=== PATIENT | male | born 1985 | race Caucasian/White ===

== ENCOUNTER 2017-01-28 03:12 | Emergency (ER) | payer MEDICAID ==
[~2017-01-28] VITALS: Ht 183.5 cm; Wt 77.1 kg
[2017-01-28] MEDS ORDERED: KLONOPIN0.5 MG ORAL (03:28)
[2017-01-28] MEDS ORDERED: CELEXA20 MG ORAL ×2 (03:28→05:40)
[2017-01-28] MEDS ORDERED: GABAPENTIN100 MG ORAL (03:29)
[2017-01-28 03:32] VITALS: BP 118/88
[2017-01-28] MEDS ORDERED: PERMETHRIN60 GM TOPIC (05:40)
[2017-01-28 05:46] VITALS: BP 1/1
--- NOTE | 2017-01-28 23:29 | Emergency Room Report ---
History of Present Illness General Chief Complaint: General Complaint Source: Patient Present Illness HPI 31YOM [employer] with rash for "many months to whole body." States sleeping on friend's couch, just moved to [place] from [place]. Associated with itch. No fever/ chills, blistering. Also requesting refill of Celexa and Klonopin for known depression/anxiety. Again endorsing recent move here. Doesnt have psychiatrist. Denies SI, HI, AVH. Patient History Past Medical History: psych hx Past Surgical History: none Pertinent Family History: none Social History: Denies: alcohol use, drug use, smoking Immunizations: UTD Reviewed Nursing Documentation: PMH: Agreed, PSxH: Agreed Nursing Documentation-PMH Past Medical History: No History, Except For History Of Psychiatric Problem: Yes - anxiety, PTSD Review of Systems All Other Systems: negative except mentioned in HPI Physical Exam Vital Signs Date Time Temp Pulse Resp B/P Pulse Ox O2 Delivery O2 Flow Rate FiO2 01/28/17 03:24 97.9 88 20 110/84 100 Room Air Sp02 EP Interpretation: reviewed, normal General Appearance: normal inspection, well appearing, no apparent distress, alert, GCS 15, non-toxic Head: normocephalic, atraumatic Eyes: bilateral eye EOMI, bilateral eye PERRL ENT: normal ENT inspection, hearing grossly normal, normal voice Neck: normal inspection, full range of motion, supple, no bony tend Respiratory: normal inspection, lungs clear, normal breath sounds, no respiratory distress, no retraction, no wheezing Cardiovascular #1: regular rate, rhythm, no edema Gastrointestinal: normal inspection, normal bowel sounds, non tender, soft, no guarding, no hernia Genitourinary: no CVA tenderness Musculoskeletal: normal inspection, back normal, normal range of motion, Mani' s Sign negative Neurologic: normal inspection, alert, oriented x3, responsive, drum maker III-XII nml as tested, motor strength/tone normal, speech normal Psychiatric: normal inspection, judgement/insight normal, mood/affect normal Skin: other - Multiple areas of excoriations to bilateral upper/lower extremities, torso/back/abdomen with isolated single scabs, papules. No blisters or vesicles. Also in webbing of hands. Medical Decision Making Diagnostic Impression: Primary Impression: Scabies Additional Impression: Medication refill ER Course Rash for 4 months - VSS. Afebrile. - No fever, blisters, vesicles - ?scabies - Rx Permethrin Med refill - Refilled Celexa - Advised patient Im not comfortable refilling Klonopin - Given [facility] referral info - No SI, HI, AVH. - Does not need urgent psych eval Last Vital Signs Date Time Temp Pulse Resp B/P Pulse Ox O2 Delivery O2 Flow Rate FiO2 01/28/17 05:46 07/2101/28/17 03:32 97.9 74 20 100 Room Air Status: improved Disposition: HOME, SELF-CARE Condition: Improved Scripts Citalopram Hydrobromide* (CELEXA*) 20 Mg Tablet 20 MG ORAL DAILY for 30 Days, #30 TAB Prov: ETHAN GONZALEZ M.D. 01/28/17 Permethrin* (ELIMITE*) 60 Gm Cream..g. 1 APPLIC TOPIC ONCE, #60 GM 0 Refills Apply cream from head to toe; leave on for 8-14 hours before washing off with water; may reapply in 1 week if live mites appear. Prov: ETHAN GONZALEZ M.D. 01/28/17 Referrals: NOT CHOSEN [facility]/,REFERRING (PCP) Patient Instructions: Contact Precautions, [id number] ETHAN GONZALEZ M.D. Jan 28, 2017 23:29
== END 2017-01-28 05:45 | disposition home or self-care (01) ==
LOC: EMR 03:43
DX: Z76.0 Encounter for issue of repeat prescription (principal); B86 Scabies; F32.9 Major depressive disorder, single episode, unspecified; F41.9 Anxiety disorder, unspecified
CPT/HCPCS: 99284

== ENCOUNTER 2017-02-01 00:52 | Emergency (ER) | payer MEDICAID ==
[~2017-02-01] VITALS: Ht 182.9 cm; Wt 77.1 kg
[2017-02-01] VITALS (12 sets, daily range): BP systolic 104–125; BP diastolic 62–87
[~2017-02-01 00:52] MED LIST: ATENOLOL25 MG ORAL; CATAPRES0.2 MG ORAL; CELEXA20 MG ORAL; GABAPENTIN100 MG ORAL; KLONOPIN0.5 MG ORAL; PERMETHRIN60 GM TOPIC; TEGRETOL200 MG PO
[2017-02-01] MEDS ORDERED: Tetanus/Diptheria/Pertussis Vaccine 0.5ml Syr IM ONE (01:00)
[2017-02-01] MEDS ORDERED: LORazepam 1mg tab ORAL ONE (01:00)
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
[2017-02-01] MEDS ORDERED: IBUPROFEN600 MG ORAL (06:44)
[2017-02-01] MEDS ORDERED: PERMETHRIN60 GM TOPIC (06:44)
[2017-02-01 07:37] LABS: BASOPHILS % (AUTO) 1.8 % (0.0-2.0); EOSINOPHILS % (AUTO) 1.9 % (0.0-3.0); LYMPHOCYTES % (AUTO) 40.8 % (20.0-45.0); MEAN CORPUSCULAR HEMOGLOBIN 33.4 PG (27.0-31.0); MEAN CORPUSCULAR HGB CONC 34.1 G/DL (32.0-36.0); MEAN CORPUSCULAR VOLUME 98 FL (80-99); MEAN PLATELET VOLUME 5.9 FL (6.5-10.1); MONOCYTES % (AUTO) 8.4 % (1.0-10.0); NEUTROPHILS % (AUTO) 47.2 % (45.0-75.0); PLATELET COUNT 268 K/UL (150-450); RED BLOOD COUNT 4.08 M/UL (4.70-6.10); RED CELL DISTRIBUTION WIDTH 10.8 % (11.6-14.8); WHITE BLOOD COUNT 8.2 K/UL (4.8-10.8)
[2017-02-01 08:20] LABS: ACETAMINOPHEN < 10 ug/mL (10-30); ALANINE AMINOTRANSFERASE 31 U/L (3-41); ALBUMIN/GLOBULIN RATIO 1.2 (1.0-2.7); ALCOHOL < 10 mg/dL; ANION GAP 10 (5-15); ASPARTATE AMINO TRANSFERASE 37 U/L (5-40); CALCIUM 9.1 mg/dL (8.6-10.2); CARBON DIOXIDE 29 mEQ/L (20-30); CHLORIDE 100 mEQ/L (98-107); GLOMERULAR FILTRATION RATE > 60 mL/min (>60); HEMOLYSIS 20; POTASSIUM 4.4 mEQ/L (3.4-4.9); SODIUM 139 mEQ/L (135-145); TOTAL PROTEIN 6.5 g/dL (6.6-8.7)
--- NOTE | 2017-02-01 10:58 | Diagnostic Imaging Report ---
Indication: Left hand trauma/pain Technique: XRAY HAND 2V LEFT Comparison: None Findings: Examination is limited by suboptimal positioning and only 2 orthogonal planes. There is no gross acute fracture or dislocation. There is old fracture deformity of the fifth metacarpal. Corticated ossicle versus old nonunited fracture of the ulnar styloid is seen. Soft tissue swelling is seen. Impression: Limited examination without gross acute fracture or dislocation. Soft tissue swelling. Repeat examination recommended as indicated. Chronic findings as above.
--- NOTE | 2017-02-03 08:39 | Diagnostic Imaging Report ---
Indication: Right hand pain Technique: XRAY HAND 2V RIGHT Comparison: None Findings: Examination is limited by only 2 orthogonal planes and positioning. There is no gross acute fracture or dislocation. Soft tissue swelling is seen. There is an old nonunited fracture of the ulnar styloid. Chronic appearing fracture deformities are also seen of the fourth and fifth metacarpals. Impression: Limited examination without gross acute fracture or dislocation. Soft tissue swelling. Repeat examination recommended as indicated. Chronic findings as above.
--- NOTE | 2017-02-05 17:13 | Cardiology Report ---
APPROVED REPORT EKG Measurement Heart [id number] Marked sinus bradycardia Abnormal ECG
--- NOTE | 2017-02-05 17:18 | Cardiology Report ---
APPROVED REPORT EKG Measurement Heart [id number] Normal sinus rhythm Normal ECG
== END 2017-02-01 12:58 | disposition home or self-care (01) ==
LOC: EDBD 00:52 → EMR 01:07
DX: F25.9 Schizoaffective disorder, unspecified (principal); S60.222A Contusion of left hand, initial encounter; S60.221A Contusion of right hand, initial encounter; F17.200 Nicotine dependence, unspecified, uncomplicated; I10 Essential (primary) hypertension; Z23 Encounter for immunization; Y09 Assault by unspecified means; Y92.9 Unspecified place or not applicable
CPT/HCPCS: 36415; 80053; 80329; 82550; 85025; 90471; 90715; 93005; 96372; 99284

== ENCOUNTER 2017-12-01 17:35 | Emergency (ER) | payer MEDICAID ==
[~2017-12-01] VITALS: Ht 172.7 cm; Wt 77.1 kg
[~2017-12-01 17:35] MED LIST changes: +IBUPROFEN600 MG ORAL
[2017-12-01] MEDS ORDERED: Naloxone 1mg/ml 2ml IM ONE (17:45)
[2017-12-01 18:16] VITALS: BP 114/78
[2017-12-01 20:37] LABS: BASOPHILS % (AUTO) 1.7 % (0.0-2.0); EOSINOPHILS % (AUTO) 1.6 % (0.0-3.0); HEMATOCRIT 42.9 % (42.0-52.0); HEMOGLOBIN 14.9 G/DL (14.2-18.0); LYMPHOCYTES % (AUTO) 21.6 % (20.0-45.0); MEAN CORPUSCULAR VOLUME 94 FL (80-99); MONOCYTES % (AUTO) 7.7 % (1.0-10.0); NEUTROPHILS % (AUTO) 67.4 % (45.0-75.0); PLATELET COUNT 276 K/UL (150-450); RED BLOOD COUNT 4.54 M/UL (4.70-6.10); RED CELL DISTRIBUTION WIDTH 11.1 % (11.6-14.8); WHITE BLOOD COUNT 7.5 K/UL (4.8-10.8)
[2017-12-01 20:48] LABS: ANION GAP 7 mmol/L (5-15); BLOOD UREA NITROGEN 21 mg/dL (7-18); CALCIUM 9.4 MG/DL (8.5-10.1); CARBON DIOXIDE 27 MMOL/L (21-32); CHLORIDE 105 MMOL/L (98-107); CREATININE 1.1 MG/DL (0.55-1.30); POTASSIUM 4.1 MMOL/L (3.5-5.1); SODIUM 139 MMOL/L (136-145)
[2017-12-01 20:53] LABS: ALANINE AMINOTRANSFERASE 125 U/L (12-78); ALBUMIN 3.6 G/DL (3.4-5.0); ALBUMIN/GLOBULIN RATIO 0.9 (1.0-2.7); ALKALINE PHOSPHATASE 58 U/L (46-116); ASPARTATE AMINO TRANSFERASE 77 U/L (15-37); BILIRUBIN,TOTAL 0.5 MG/DL (0.2-1.0)
[2017-12-01 22:15] VITALS: BP 139/85
--- NOTE | 2017-12-01 22:34 | Emergency Room Report ---
History of Present Illness General Chief Complaint: Overdose Source: EMS (Donny Brady MD) Present Illness HPI Patient is a 32-year-old male brought in by EMS after increased altered mental status. Patient had the been noted to have increased confusion. History is limited by patient's mental status. Patient had been given Narcan 2 mg intranasally by EMS. The patient was noted to have improvement in his respiratory rate after Narcan.The patient noted to have continued confusion. (Donny Brady MD) Allergies: Coded Allergies: No Known Allergies (Unverified , 02/01/17) Patient History Past Medical History: see triage record Reviewed Nursing Documentation: PMH: Agreed; PSxH: Agreed (Donny Brady MD) Nursing Documentation-PMH Past Medical History: No History, Except For Hx Hypertension: Yes (Donny Brady MD) Review of Systems All Other Systems: negative except mentioned in HPI (Donny Brday MD) Physical Exam Vital Signs Date Time Temp Pulse Resp B/P (MAP) Pulse Ox O2 Delivery O2 Flow Rate FiO2 12/01/17 17:37 72 14 114/78 95 Room Air 12/01/17 22:15 99.0 99.0 Sp02 EP Interpretation: reviewed, normal General Appearance: normal inspection, well appearing, no apparent distress, alert Head: atraumatic ENT: normal ENT inspection, hearing grossly normal, normal voice Neck: normal inspection, full range of motion, supple, no bony tend Respiratory: normal inspection, lungs clear, normal breath sounds, no respiratory distress, no retraction, no wheezing Cardiovascular #1: regular rate, rhythm, no edema Gastrointestinal: normal inspection, normal bowel sounds, non tender, soft, no guarding, no hernia Genitourinary: no CVA tenderness Musculoskeletal: normal inspection, back normal, normal range of motion Neurologic: speech normal Psychiatric: normal inspection, judgement/insight normal, mood/affect normal Skin: no rash, other - multiple skin lesions (Donny Brady MD) Medical Decision Making Diagnostic Impression: Primary Impression: Drug overdose Additional Impression: Polysubstance abuse ER Course Patient presented for altered mental status. Differential diagnosis included but was not limited to ischemic stroke, subarachnoid hemorrhage, hypoglycemia, spinal cord injury, neurodegenerative disorder, urinary tract infection, hypoxemia.Because of complexity of patient's case laboratory testing and imaging studies were ordered. The patient was given Narcan intramuscularly. Patient was noted to have initially markedly depression of his mental status. Had a gag reflex. The patient started on IV fluids. Patient had gradual improvement in his mental status. Blood alcohol is negative. Urine drug screen was positive for marijuanam, benzodiazepine and amphetamine. The patient denies intent to self- harm. Labs Test 12/01/17 20:00 12/01/17 22:00 White Blood Count 7.5 K/UL (4.8-10.8) Red Blood Count 4.54 M/UL (4.70-6.10) Hemoglobin 14.9 G/DL (14.2-18.0) Hematocrit 42.9 % (42.0-52.0) Mean Corpuscular Volume 94 FL (80-99) Mean Corpuscular Hemoglobin 32.8 PG (27.0-31.0) Mean Corpuscular Hemoglobin Concent 34.7 G/DL (32.0-36.0) Red Cell Distribution Width 11.1 % (11.6-14.8) Platelet Count 276 K/UL (150-450) Mean Platelet Volume 5.5 FL (6.5-10.1) Neutrophils (%) (Auto) 67.4 % (45.0-75.0) Lymphocytes (%) (Auto) 21.6 % (20.0-45.0) Monocytes (%) (Auto) 7.7 % (1.0-10.0) Eosinophils (%) (Auto) 1.6 % (0.0-3.0) Basophils (%) (Auto) 1.7 % (0.0-2.0) Sodium Level 139 MMOL/L (136-145) Potassium Level 4.1 MMOL/L (3.5-5.1) Chloride Level 105 MMOL/L (98-107) Carbon Dioxide Level 27 MMOL/L (21-32) Anion Gap 7 mmol/L (5-15) Blood Urea Nitrogen 21 mg/dL (7-18) Creatinine 1.1 MG/DL (0.55-1.30) Estimat Glomerular Filtration Rate > 60 mL/min (>60) Glucose Level 66 MG/DL (74-106) Calcium Level 9.4 MG/DL (8.5-10.1) Total Bilirubin 0.5 MG/DL (0.2-1.0) Aspartate Amino Transf (AST/SGOT) 77 U/L (15-37) Alanine Aminotransferase (ALT/SGPT) 125 U/L (12-78) Alkaline Phosphatase 58 U/L (46-116) Total Protein 7.5 G/DL (6.4-8.2) Albumin 3.6 G/DL (3.4-5.0) Globulin 3.9 g/dL Albumin/Globulin Ratio 0.9 (1.0-2.7) Salicylates Level 1.7 ug/mL (2.8-20) Acetaminophen Level < 2 MCG/ML (10-30) Serum Alcohol 3 mg/dL Urine Opiates Screen Negative (NEGATIVE) Urine Barbiturates Screen Negative (NEGATIVE) Phencyclidine (PCP) Screen Negative (NEGATIVE) Urine Amphetamines Screen Positive (NEGATIVE) Urine Benzodiazepines Screen Positive (NEGATIVE) Urine Cocaine Screen Negative (NEGATIVE) Urine Marijuana (THC) Screen Positive (NEGATIVE) (Donny Brady MD) ER Course During my shift overnight Patient rested comfortably he was provided initially with repeat IV dose of Narcan Which he response to well Patient continues to rest overnight Appears to have multi-substance abuse There was no reports of intentional abuse Patient is well aware of Narcan And is upset when he does receive Narcan Patient observed further at this time having further sobering Maintaining appropriate airway becoming more aware and awake Labs Test 12/01/17 20:00 12/01/17 22:00 White Blood Count 7.5 K/UL (4.8-10.8) Red Blood Count 4.54 M/UL (4.70-6.10) Hemoglobin 14.9 G/DL (14.2-18.0) Hematocrit 42.9 % (42.0-52.0) Mean Corpuscular Volume 94 FL (80-99) Mean Corpuscular Hemoglobin 32.8 PG (27.0-31.0) Mean Corpuscular Hemoglobin Concent 34.7 G/DL (32.0-36.0) Red Cell Distribution Width 11.1 % (11.6-14.8) Platelet Count 276 K/UL (150-450) Mean Platelet Volume 5.5 FL (6.5-10.1) Neutrophils (%) (Auto) 67.4 % (45.0-75.0) Lymphocytes (%) (Auto) 21.6 % (20.0-45.0) Monocytes (%) (Auto) 7.7 % (1.0-10.0) Eosinophils (%) (Auto) 1.6 % (0.0-3.0) Basophils (%) (Auto) 1.7 % (0.0-2.0) Sodium Level 139 MMOL/L (136-145) Potassium Level 4.1 MMOL/L (3.5-5.1) Chloride Level 105 MMOL/L (98-107) Carbon Dioxide Level 27 MMOL/L (21-32) Anion Gap 7 mmol/L (5-15) Blood Urea Nitrogen 21 mg/dL (7-18) Creatinine 1.1 MG/DL (0.55-1.30) Estimat Glomerular Filtration Rate > 60 mL/min (>60) Glucose Level 66 MG/DL (74-106) Calcium Level 9.4 MG/DL (8.5-10.1) Total Bilirubin 0.5 MG/DL (0.2-1.0) Aspartate Amino Transf (AST/SGOT) 77 U/L (15-37) Alanine Aminotransferase (ALT/SGPT) 125 U/L (12-78) Alkaline Phosphatase 58 U/L (46-116) Total Protein 7.5 G/DL (6.4-8.2) Albumin 3.6 G/DL (3.4-5.0) Globulin 3.9 g/dL Albumin/Globulin Ratio 0.9 (1.0-2.7) Salicylates Level 1.7 ug/mL (2.8-20) Acetaminophen Level < 2 MCG/ML (10-30) Serum Alcohol 3 mg/dL Urine Opiates Screen Negative (NEGATIVE) Urine Barbiturates Screen Negative (NEGATIVE) Phencyclidine (PCP) Screen Negative (NEGATIVE) Urine Amphetamines Screen Positive (NEGATIVE) Urine Benzodiazepines Screen Positive (NEGATIVE) Urine Cocaine Screen Negative (NEGATIVE) Urine Marijuana (THC) Screen Positive (NEGATIVE) (Lion Huerta DO) Last Vital Signs Date Time Temp Pulse Resp B/P (MAP) Pulse Ox O2 Delivery O2 Flow Rate FiO2 12/01/17 22:15 99.0 91 14 139/85 97 Room Air 99.0 Status: improved (Donny Brady MD) Status: improved (Lion Huerta DO) Disposition: HOME, SELF-CARE Condition: Improved Referrals: NOT CHOSEN [facility]/,REFERRING (PCP) Additional Instructions: Patient is provided with the discharge instructions notified to follow up with primary doctor in the next 2-3 days otherwise return to the er with any worsening symptoms. Please note that this report is being documented using DRAGON technology. This can lead to erroneous entry secondary to incorrect interpretation by the dictating instrument. Donny Brady MD December 01, 2017 22:34 Lion Huerta DO December 02, 2017 05:03
[2017-12-02] MEDS ORDERED: Naloxone 1mg/ml 2ml ONE (01:49)
[2017-12-02 01:57] VITALS: BP 144/105
[2017-12-02] MEDS ORDERED: Naloxone 1mg/ml 2ml IVP ONE (02:00)
[2017-12-02 03:30] VITALS: BP 144/98
[2017-12-02 06:10] VITALS: BP 132/88
[2017-12-02 06:27] VITALS: BP 144/98
== END 2017-12-02 06:27 | disposition home or self-care (01) ==
LOC: EDBD 17:35 → EMR 19:14 → EDBEDREQ 20:48 → CANBEDREQ 22:28 → EMR 12-02 06:27
DX: T65.91XA Toxic effect of unspecified substance, accidental (unintentional), initial encounter (principal); R41.82 Altered mental status, unspecified; F19.10 Other psychoactive substance abuse, uncomplicated; I10 Essential (primary) hypertension
CPT/HCPCS: 36415; 80053; 80307; 80329; 85025; 96372; 96374; 96375; 99283; J2310

== ENCOUNTER 2018-03-05 12:19 | Emergency (ER) | payer MEDICAID ==
[~2018-03-05] VITALS: Ht 172.7 cm; Wt 72.6 kg
[2018-03-05] VITALS (9 sets, daily range): BP systolic 97–128; BP diastolic 56–82
[2018-03-05] MEDS ORDERED: Naloxone 0.4mg/ml Inj IVP ONE (13:15)
[2018-03-05 13:32] LABS: BASOPHILS % (AUTO) 0.7 % (0.0-2.0); EOSINOPHILS % (AUTO) 1.1 % (0.0-3.0); HEMATOCRIT 38.4 % (42.0-52.0); HEMOGLOBIN 13.1 G/DL (14.2-18.0); LYMPHOCYTES % (AUTO) 19.9 % (20.0-45.0); MEAN CORPUSCULAR VOLUME 93 FL (80-99); MONOCYTES % (AUTO) 10.5 % (1.0-10.0); NEUTROPHILS % (AUTO) 67.9 % (45.0-75.0); PLATELET COUNT 256 K/UL (150-450); RED BLOOD COUNT 4.13 M/UL (4.70-6.10); RED CELL DISTRIBUTION WIDTH 11.2 % (11.6-14.8); WHITE BLOOD COUNT 8.5 K/UL (4.8-10.8)
[2018-03-05 13:42] LABS: ANION GAP 5 mmol/L (5-15); BLOOD UREA NITROGEN 14 mg/dL (7-18); CALCIUM 8.9 MG/DL (8.5-10.1); CARBON DIOXIDE 31 MMOL/L (21-32); CHLORIDE 102 MMOL/L (98-107); CREATININE 0.9 MG/DL (0.55-1.30); POTASSIUM 4.3 MMOL/L (3.5-5.1); SODIUM 138 MMOL/L (136-145)
[2018-03-05 13:46] LABS: ALANINE AMINOTRANSFERASE 129 U/L (12-78); ALBUMIN 3.4 G/DL (3.4-5.0); ALBUMIN/GLOBULIN RATIO 0.8 (1.0-2.7); ALKALINE PHOSPHATASE 68 U/L (46-116); ASPARTATE AMINO TRANSFERASE 79 U/L (15-37); BILIRUBIN,TOTAL 0.6 MG/DL (0.2-1.0)
[2018-03-05 13:48] LABS: APPEARANCE,URINE CLEAR; BILIRUBIN, URINE NEGATIVE (NEGATIVE); GLUCOSE, URINE (UA) NEGATIVE (NEGATIVE); KETONES,URINE NEGATIVE (NEGATIVE); LEUKOCYTE ESTERASE ,URINE 1+ (NEGATIVE); NITRITE,URINE NEGATIVE (NEGATIVE); PH,URINE 6.5 (4.5-8.0); PROTEIN,URINE 1+ (NEGATIVE); UROBILINOGEN,URINE 4 MG/DL (0.0-1.0)
[2018-03-05 13:53] LABS: COLOR,URINE YELLOW
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
[2018-03-05] MEDS ORDERED: Naloxone 1mg/ml 2ml IVP ONE (14:00)
== END 2018-03-05 19:07 | disposition home or self-care (01) ==
LOC: EDBD 12:19 → EMR 16:17
DX: T50.901A Poisoning by unspecified drugs, medicaments and biological substances, accidental (unintentional), initial encounter (principal); I10 Essential (primary) hypertension; Y92.410 Unspecified street and highway as the place of occurrence of the external cause
CPT/HCPCS: 36415; 80053; 80307; 80329; 81001; 82962; 85025; 96361; 96374; 96376; 99284; J2310

== ENCOUNTER 2018-08-07 23:43 | Emergency (ER) | payer MEDICAID ==
[~2018-08-07] VITALS: Ht 182.9 cm; Wt 81.6 kg
--- NOTE | 2018-08-07 23:45 | NUR ---
ED Nurse Note: IV access established. Blood and urine collected; sent down to lab.
[2018-08-07 23:50] VITALS: BP 128/60
[2018-08-07] MEDS ORDERED: NKM (23:50)
--- NOTE | 2018-08-07 23:50 | NUR ---
ED Nurse Note: pt was brought in by [address]/o possible overdose. 4 narcan was given on the scene 2 IM, 2 iv.
[2018-08-08] MEDS ORDERED: LORazepam Inj 2mg/ml 1ml IM ONE ×2 (00:30→01:45)
[2018-08-08] MEDS ORDERED: Haloperidol 5mg/ml Inj IM ONE ×2 (00:30→01:45)
[2018-08-08 00:40] LABS: ANION GAP 11 mmol/L (5-15); BLOOD UREA NITROGEN 10 mg/dL (7-18); CALCIUM 9.7 MG/DL (8.5-10.1); CARBON DIOXIDE 25 MMOL/L (21-32); CHLORIDE 105 MMOL/L (98-107); CREATININE 1.2 MG/DL (0.55-1.30); POTASSIUM 4.2 MMOL/L (3.5-5.1); SODIUM 141 MMOL/L (136-145)
[2018-08-08 00:45] LABS: ALANINE AMINOTRANSFERASE 90 U/L (12-78); ALBUMIN 4.1 G/DL (3.4-5.0); ALKALINE PHOSPHATASE 62 U/L (46-116); ASPARTATE AMINO TRANSFERASE 53 U/L (15-37); BILIRUBIN,TOTAL 0.2 MG/DL (0.2-1.0)
[2018-08-08] MEDS ORDERED: DiphenhydrAMINE 50mg/ml Inj IM ONE (01:45)
[2018-08-08 02:00] VITALS: BP 132/53
--- NOTE | 2018-08-08 02:00 | NUR ---
ED Nurse Note: Patient sleeping. NAD. VSS
--- NOTE | 2018-08-08 03:27 | Emergency Room Report ---
History of Present Illness General Chief Complaint: Overdose Source: EMS (Feroz Aguirre MD) Present Illness HPI 32-year-old male since ED for evaluation. Brought in by EMS for altered mental status today. Per EMS concern for heroin overdose. Was given Narcan. Patient is agitated but lethargic. Unable to provide any additional history at this time. No other aggravating relieving factors. No other associated symptoms (Feroz Aguirre MD) Allergies: Coded Allergies: No Known Allergies (Unverified , 02/01/17) Patient History Past Medical History: none Past Surgical History: none Pertinent Family History: none Social History: Reports: drug use; Denies: smoking, alcohol use Immunizations: UTD Reviewed Nursing Documentation: PMH: Agreed; PSxH: Agreed (Feroz Aguirre MD) Nursing Documentation-PMH Hx Hypertension: Yes (Feroz Aguirre MD) Review of Systems All Other Systems: limited (Feroz Aguirre MD) Physical Exam Vital Signs Date Time Temp Pulse Resp B/P (MAP) Pulse Ox O2 Delivery O2 Flow Rate FiO2 08/07/18 23:45 97.0 78 16 128/60 100 Room Air Sp02 EP Interpretation: reviewed, normal General Appearance: lethargic, other - agitated Head: normocephalic Eyes: bilateral eye EOMI ENT: normal ENT inspection Neck: normal inspection Respiratory: chest non-tender, lungs clear, normal breath sounds, speaking full sentences Cardiovascular #1: regular rate, rhythm, no edema Gastrointestinal: normal inspection Rectal: deferred Genitourinary: no CVA tenderness Musculoskeletal: normal inspection Neurologic: other - agitated Psychiatric: other - agitated Skin: normal inspection Lymphatic: normal inspection (Feroz Aguirre MD) Medical Decision Making Diagnostic Impression: Primary Impression: Substance abuse Labs Test 08/07/18 23:45 Sodium Level 141 MMOL/L (136-145) Potassium Level 4.2 MMOL/L (3.5-5.1) Chloride Level 105 MMOL/L (98-107) Carbon Dioxide Level 25 MMOL/L (21-32) Anion Gap 11 mmol/L (5-15) Blood Urea Nitrogen 10 mg/dL (7-18) Creatinine 1.2 MG/DL (0.55-1.30) Estimat Glomerular Filtration Rate > 60 mL/min (>60) Glucose Level 54 MG/DL (74-106) Calcium Level 9.7 MG/DL (8.5-10.1) Total Bilirubin 0.2 MG/DL (0.2-1.0) Aspartate Amino Transf (AST/SGOT) 53 U/L (15-37) Alanine Aminotransferase (ALT/SGPT) 90 U/L (12-78) Alkaline Phosphatase 62 U/L (46-116) Total Protein 8.3 G/DL (6.4-8.2) Albumin 4.1 G/DL (3.4-5.0) Globulin 4.2 g/dL Albumin/Globulin Ratio 1.0 (1.0-2.7) Salicylates Level 2.9 ug/mL (2.8-20) Urine Opiates Screen Negative (NEGATIVE) Acetaminophen Level < 2 MCG/ML (10-30) Urine Barbiturates Screen Negative (NEGATIVE) Phencyclidine (PCP) Screen Positive (NEGATIVE) Urine Amphetamines Screen Positive (NEGATIVE) Urine Benzodiazepines Screen Negative (NEGATIVE) Urine Cocaine Screen Negative (NEGATIVE) Urine Marijuana (THC) Screen Positive (NEGATIVE) Serum Alcohol < 3 mg/dL (Feroz Aguirre MD) ER Course At approximately 10 AM the patient has awakened is GCS 15 appropriate Patient reports that he is in a [place] and that he needs to get his methadone clinic as soon as possible Patient apparently reported that he was homeless to nursing staff and therefore the homeless disposition packet was initiated Medically the patient has stable hemodynamically stable and cleared for outpatient care Patient was notified that he tested positive for multiple drugs he is aware of this and will follow closely Labs Test 08/07/18 23:45 Sodium Level 141 MMOL/L (136-145) Potassium Level 4.2 MMOL/L (3.5-5.1) Chloride Level 105 MMOL/L (98-107) Carbon Dioxide Level 25 MMOL/L (21-32) Anion Gap 11 mmol/L (5-15) Blood Urea Nitrogen 10 mg/dL (7-18) Creatinine 1.2 MG/DL (0.55-1.30) Estimat Glomerular Filtration Rate > 60 mL/min (>60) Glucose Level 54 MG/DL (74-106) Calcium Level 9.7 MG/DL (8.5-10.1) Total Bilirubin 0.2 MG/DL (0.2-1.0) Aspartate Amino Transf (AST/SGOT) 53 U/L (15-37) Alanine Aminotransferase (ALT/SGPT) 90 U/L (12-78) Alkaline Phosphatase 62 U/L (46-116) Total Protein 8.3 G/DL (6.4-8.2) Albumin 4.1 G/DL (3.4-5.0) Globulin 4.2 g/dL Albumin/Globulin Ratio 1.0 (1.0-2.7) Salicylates Level 2.9 ug/mL (2.8-20) Urine Opiates Screen Negative (NEGATIVE) Acetaminophen Level < 2 MCG/ML (10-30) Urine Barbiturates Screen Negative (NEGATIVE) Phencyclidine (PCP) Screen Positive (NEGATIVE) Urine Amphetamines Screen Positive (NEGATIVE) Urine Benzodiazepines Screen Negative (NEGATIVE) Urine Cocaine Screen Negative (NEGATIVE) Urine Marijuana (THC) Screen Positive (NEGATIVE) Serum Alcohol < 3 mg/dL (Lion Huerta DO) Last Vital Signs Date Time Temp Pulse Resp B/P (MAP) Pulse Ox O2 Delivery O2 Flow Rate FiO2 08/07/18 23:45 97.0 78 16 128/60 100 Room Air (Feroz Aguirre MD) Status: improved (Lion Huerta DO) Disposition: HOME, SELF-CARE Condition: Improved Referrals: Juvenal BOTELLO,REFERRING (PCP) Additional Instructions: Patient is provided with the discharge instructions notified to follow up with primary doctor in the next 2-3 days otherwise return to the er with any worsening symptoms. Please note that this report is being documented using AMEE technology. This can lead to erroneous entry secondary to incorrect interpretation by the dictating instrument. Feroz Aguirre MD Aug 08, 2018 03:27 Lion Huerta DO Aug 08, 2018 10:07
[2018-08-08 04:00] VITALS: BP 132/95
--- NOTE | 2018-08-08 04:00 | NUR ---
ED Nurse Note: Patient sleeping. NAD. VSS
[2018-08-08 06:00] VITALS: BP 125/87
--- NOTE | 2018-08-08 06:00 | NUR ---
ED Nurse Note: Patient sleeping. NAD. VSS
--- NOTE | 2018-08-08 07:15 | NUR ---
ED Nurse Note: Pt is asleep and comfortable, per ermd, will be ready for d/c as soon as pt is awake
[2018-08-08 08:20] VITALS: BP 118/80
[2018-08-08 09:50] VITALS: BP 118/80
--- NOTE | 2018-08-08 09:50 | NUR ---
ED Nurse Note: pt was cleared for discharge by raya. prescription and discharge instruction explained. pt is aox 4, pt able to verbalize understanding. id band removed. pt able to walk with steady gait. pt left with all belongings.pt was provided clothes, food, and a tap card for trasnportation. pt was in a hurry to his destintion of choice and did not sign dc paper/homeless check list. pt was able to complete mini cog.
== END 2018-08-08 09:50 | disposition home or self-care (01) ==
LOC: EDUNIT# 23:43 → EDBD 23:43 → EMR 23:59
DX: F19.10 Other psychoactive substance abuse, uncomplicated (principal); I10 Essential (primary) hypertension; Z59.0 Homelessness
CPT/HCPCS: 36415; 80053; 80307; 80329; 96372; 99284; J1200; J1630

== ENCOUNTER 2018-12-29 16:52 | Emergency (ER) | payer MEDICAID, OTHER ==
[~2018-12-29] VITALS: Ht 182.9 cm; Wt 83.9 kg
[~2018-12-29 16:52] MED LIST changes: +NKM
[2018-12-29 16:54] VITALS: BP 119/73
--- NOTE | 2018-12-29 16:56 | NUR ---
ED Nurse Note: pt brought in to ER by ambulance due to somebody called 911 on him for meditating on the street. pt aao x2 and ambulatory. pt admitted that he had 2 bottles of IPA but denied to nurse at ER. skin flushed and warm to touch but no open wound and no fever noted.
[2018-12-29 17:04] VITALS: BP 119/73
--- NOTE | 2018-12-29 17:06 | NUR ---
ER DISCHARGE NOTE: Patient is cleared to be discharged per ERMD, pt is aox2, on room air, with stable vital signs. pt was given dc and prescription instructions, pt refused to verbalize understanding, pt id bandremoved. pt is able to ambulate with steady gait. pt took all belongings.
--- NOTE | 2018-12-29 19:21 | Emergency Room Report ---
History of Present Illness General Chief Complaint: General Complaint Source: Patient, Medical Record Present Illness HPI Patient presents requesting medication for anxiety Patient already appears sluggish Denies any headache denies any chest pain Denies any vomiting or diarrhea Patient reports that his anxiety has been acting up and requesting further medication Denies any homicidal or suicidal thoughts patient denies any previous psychiatric history Denies any auditory or visual hallucinations After several minutes being placed on a gurney patient is physically abusive and aggressive Allergies: Coded Allergies: ATENOLOL (Unverified Allergy, Unknown, 12/29/18) Patient History Past Medical History: see triage record Pertinent Family History: none Reviewed Nursing Documentation: PMH: Agreed; PSxH: Agreed Nursing Documentation-PMH Past Medical History: No History, Except For Hx Hypertension: Yes History Of Psychiatric Problem: Yes - Anxiety Hx Seizures: Yes Review of Systems All Other Systems: negative except mentioned in HPI Physical Exam Vital Signs Date Time Temp Pulse Resp B/P (MAP) Pulse Ox O2 Delivery O2 Flow Rate FiO2 12/29/18 16:49 98.2 81 20 119/73 (88) 98 Room Air Sp02 EP Interpretation: reviewed, normal General Appearance: no apparent distress Head: normocephalic, atraumatic Eyes: bilateral eye PERRL, bilateral eye EOMI ENT: hearing grossly normal, normal pharynx, TMs + canals normal, uvula midline Neck: full range of motion, supple, no meningismus, no bony tend Respiratory: lungs clear, normal breath sounds, no rhonchi, no respiratory distress, no retraction, no accessory muscle use Cardiovascular #1: normal peripheral pulses, regular rate, rhythm, no edema, no gallop, no JVD, no murmur Gastrointestinal: normal bowel sounds, non tender, soft, no mass, no organomegaly, non-distended, no guarding, no hernia, no pulsatile mass, no rebound Genitourinary: no CVA tenderness Musculoskeletal: normal inspection Neurologic: oriented x3, responsive, licensing and registration director III-XII nml as tested, motor strength/ tone normal, sensory intact Psychiatric: no suicidal/homicidal ideation Skin: warm/dry, palpation normal, other - Evidence of primary sunburn Lymphatic: normal inspection, no adenopathy Medical Decision Making Diagnostic Impression: Primary Impression: Encounter for medical screening examination ER Course patient presents by paramedics Initially reports and requesting anxiety medication Patient had initially reported drinking alcohol however denies at this time Patient appears calm and appropriate Hemodynamically stable while sitting in the gurney patient has become somewhat aggressive attempted to take one of the nurses patient otherwise remains Medically stable and is clear and was allowed to be dispositioned for further close outpatient follow-up Last Vital Signs Date Time Temp Pulse Resp B/P (MAP) Pulse Ox O2 Delivery O2 Flow Rate FiO2 12/29/18 17:04 98.2 81 20 119/73 98 Room Air Status: unchanged Disposition: HOME, SELF-CARE Condition: Improved Referrals: NOT CHOSEN [facility]/MD,REFERRING Additional Instructions: patient understands all discharge instructions. Patient will followup with primary physician in the next 2-3 days. Return to the ER with any worsening symptoms prior to that Lion Huerta DO Dec 29, 2018 19:21
== END 2018-12-29 17:10 | disposition home or self-care (01) ==
LOC: EDBD 16:52 → EMR 17:00
DX: F41.9 Anxiety disorder, unspecified (principal); I10 Essential (primary) hypertension; G40.909 Epilepsy, unspecified, not intractable, without status epilepticus; Z88.8 Allergy status to other drugs, medicaments and biological substances
CPT/HCPCS: 99282